=== PATIENT | female | born 1960 | race Two or more races ===

== ENCOUNTER 2018-01-13 07:19 | Day surgery (SDC) | payer BC ==
[2018-01-13] VITALS (9 sets, daily range): BP systolic 136–146; BP diastolic 64–76
[~2018-01-13] VITALS: Ht 160 cm; Wt 53.5 kg
[~2018-01-13 07:19] MED LIST: BLACK COHOSH160 MG PO; FISH OIL 1,2001 EAC2 PO; MULTIVITAMINS1 EAC2 ORAL; PAXIL10 MG ORAL; PROBIOTIC1 EAC2 PO; PROBIOTIC1 EAC5 PO; VITAMIN B12-FO1 EAC1 PO; VITAMIN C500 M1 ORAL
[2018-01-13] MEDS ORDERED: LR 1000ml ONE (07:20)
[2018-01-13] MEDS ORDERED: Propofol 200mg/20ml IV ONE (07:20)
[2018-01-13] MEDS ORDERED: Midazolam 2mg/2ml Inj ONE (07:20)
[2018-01-13] MEDS ORDERED: Glycopyrrolate 0.2mg/ml 1ml Vial ONE (07:20)
[2018-01-13] MEDS ORDERED: fentaNYL 100 mcg/2 mL IV ONE (07:20)
--- NOTE | 2018-01-13 07:51 | Anethesia Preoperative Eval ---
Anesthesia Pre-op PMH/ROS General Date of Evaluation: Jan 13, 2018 Time of Evaluation: 07:47 Anesthesiologist: Quynh ASA Score: ASA 2 Mallampati Score Class I : Soft palate, uvula, fauces, pillars visible Class II: Soft palate, uvula, fauces visible Class III: Soft palate, base of uvula visible Class IV: Only hard plate visible Mallampati Classification: Class II Surgeon: Porter Diagnosis: Abdominal pain Surgical Procedure: EGD Colonioscopy Anesthesia History: none Family History: no anesthesia problems Allergies: Coded Allergies: PINEAPPLE (Verified Allergy, Unknown, 01/13/18) STRAWBERRY (Verified Allergy, Unknown, 01/13/18) Uncoded Allergies: SHELLFISH (Allergy, Severe, 01/13/18) ITCHING Medications: see eMAR Patient NPO?: Yes Past Medical History Cardiovascular: Denies: HTN, CAD, GA, valve dz, arrhythmia, other Pulmonary: Denies: asthma, COPD, JAIRO, other Gastrointestinal/Genitourinary: Reports: GERD; Denies: CRI, ESRD, other Neurologic/Psychiatric: Reports: depression/anxiety; Denies: dementia, CVA, TIA, other Endocrine: Denies: DM, hypothyroidism, steroids, other HEENT: Denies: cataract (L), cataract (R), glaucoma, [place] (L), [place] (R), other Hematology/Immune: Reports: anemia; Denies: DVT, bleeding disorder, other Musculoskeletal/Integumentary: Denies: OA, RA, DJD, DDD, edema, other PMH Narrative: as above PSxH Narrative: Breast Sx Anesthesia Pre-op Phys. Exam Physician Exam Constitutional: NAD Neurologic: CN 2-12 intact Cardiovascular: RRR, no M/R/G Respiratory: CTA Gastrointestinal: S/NT/ND Airway Exam Mallampati Score: Class II MO: full Neck: flexible ROM: limited Teeth: missing Dentures: no upper, no lower Anesthesia Pre-op A/P Labs see chart Studies Pre-op Studies: EKG - SR Risk Assessment & Plan Assessment: ASA 2 Plan: MAC Status Change Before Surgery: No Pre-Antibiotics Drug: none Manny Beauchamp MD Jan 13, 2018 07:51
[2018-01-13] MEDS ORDERED: ZANTAC150 MG ORAL (07:59)
[2018-01-13] MEDS ORDERED: TURMERIC 450-51 EAC1 PO (07:59)
[2018-01-13] MEDS ORDERED: VITAMIN D400 INTLU ORAL (07:59)
[2018-01-13] MEDS ORDERED: AMITZA PO (07:59)
--- NOTE | 2018-01-13 08:18 | Short Stay Surgery H&P ---
History of Present Illness History of Present Illness Chief Complaint See attached H&P HPI Eric Scott is a 57 year old female who was admitted on for Gerd,Blood In Stool Patient History Allergies: Coded Allergies: PINEAPPLE (Verified Allergy, Unknown, 01/13/18) STRAWBERRY (Verified Allergy, Unknown, 01/13/18) Uncoded Allergies: SHELLFISH (Allergy, Severe, 01/13/18) ITCHING Medication History Scheduled Ascorbic Acid* (Vitamin C*), 1,000 MG ORAL DAILY, (Reported) Black Cohosh Root Extract (Black Cohosh), 160 MG PO BID, (Reported) Fish Oil/Dha/Epa (Fish Oil 1,200 Mg Fish Oil), 1 EACH PO DA, (Reported) Lactobacillus Acidophilus (Probiotic), 1 EACH PO DA, (Reported) Multivitamins* (Multivitamins*), 1 TAB ORAL DAILY, (Reported) Paroxetine Hcl* (Paxil*), 10 MG ORAL DAILY, (Reported) Ranitidine Hcl* (Zantac*), 300 MG ORAL BEDTIME, (Reported) Turmeric/Turmeric Root Extract (Turmeric 450-50 mg Capsule), 1 EACH PO DAILY, ( Reported) Vitamin D (Vitamin D3), 2,000 UNITS ORAL DAILY, (Reported) [Amitza], 10 MG PO BID, (Reported) Discontinued Medications Cyanocobalamin/Folic Acid (Vitamin M61-Dgrme Acid Tablet), 1 EACH PO DA, ( Reported) Discontinued Reason: Pt stopped taking med Physical Exam Vital Signs Last Vital Signs Date Time Temp Pulse Resp B/P (MAP) Pulse Ox O2 Delivery O2 Flow Rate FiO2 01/13/18 07:53 97.5 62 18 146/70 99 Room Air Plan Attestation Are the patient's medical conditions optimized for surgery? Michael Laurent MD Jan 13, 2018 08:18
--- NOTE | 2018-01-13 08:18 | Pre-Procedure Note/Attestation ---
Pre-Procedure Note/Attestation Complete Prior to Procedure Planned Procedure: not applicable Procedure Narrative: EGD/Colon Indications for Procedure Pre-Operative Diagnosis: Hematochezia, bloating Attestation I attest that I discussed the nature of the procedure; its benefits; risks and complications; and alternatives (and the risks and benefits of such alternatives ), prior to the procedure, with the patient (or the patient's legal passenger service representative). I attest that, if there was a reasonable possibility of needing a blood transfusion, the patient (or the patient's legal passenger service representative) was given the [facility] standardized written summary, pursuant to the Wilbur Negar Blood Safety Act ([place] Health and Safety Code # 1645, as amended). I attest that I re-evaluated the patient just prior to the surgery and that there has been no change in the patient's H&P, except as documented below: Michael Laurent MD Jan 13, 2018 08:18
[2018-01-13] MEDS ORDERED: LR 1000ml 1,000 ML IVLG SCH (08:33)
[2018-01-13] MEDS ORDERED: DiphenhydrAMINE 50mg/ml Inj IVP PRN (08:45)
[2018-01-13] MEDS ORDERED: fentaNYL 100 mcg/2 mL IV PRN (08:45)
--- NOTE | 2018-01-13 09:28 | Immediate Post-Op Evaluation ---
Immediate Post-Op Evalulation Immediate Post-Op Evalulation Procedure: EGD Colonoscopy Date of Evaluation: Jan 13, 2018 Time of Evaluation: 09:27 IV Fluids: 800 Blood Products: none Estimated Blood Loss: none Urinary Output: none Blood Pressure Systolic: 134 Blood Pressure Diastolic: 78 Pulse Rate: 72 Respiratory Rate: 20 O2 Sat by Pulse Oximetry: 99 Temperature (Fahrenheit): 97.6 Pain Score (1-10): 1 Nausea: No Vomiting: No Complications none Patient Status: reacts, patent, none Hydration Status: adequate Manny Beauchamp MD Jan 13, 2018 09:28
--- NOTE | 2018-01-13 09:42 | Endoscopy Procedure Note ---
Endoscopy Procedure Note General Indication for Procedure: Bloating , Hematochezia Procedures Performed: EGD, colonoscopy Operative Findings/Diagnosis: HH,2-3 cm, bx, redund colon, tic - rare, rhoids, mild, to hepatic only Specimen: yes Pt Tolerated Procedure Well: Yes Estimated Blood Loss: none Anesthesia Anesthesiologist: see separate notes Anesthesia: MAC Medications Medication Given: see anesthesia record Inserted Devices Implant(s) used?: No Quality Quality of Bowel Preparation: Excellent Did scope reach the cecum?: No If no,where did scope reach?: hepatic flexure If none of the above apply,why: redundant colon, frequent looping of colonoscope Was there any complications?: No GI Core Measures 50 yrs or older w/o bx or poly: Not Applicable 10yrs. F/U not recommended: Not Applicable If not recommended, why?: Michael Laurent MD Jan 13, 2018 09:42
--- NOTE | 2018-01-13 09:45 | Brief Operative Note ---
Immediate Post Operative Note Operative Note Chief Complaint: bloating, BRBPR Pre-op Diagnosis: Hematochezia, bloating Procedure: esophagogastroduodenoscopy, biopsi, colonoscopy to hepatic flexure, Post-op Diagnosis: HH x 3 xm , biopsy of antrum and duodenum, redundant colon, mild (L) side diverticulosis, mild hemorrhoid, aborted at hepatic flexure Surgeon: jevon Anesthesiologist: see separte report Anesthesia: MAC Specimen: yes Complications: none Condition: stable Fluids: recorded, per anesthesia Estimated Blood Loss: none Drains: none Packing: None Implant(s) used?: No Michael Laurent MD Jan 13, 2018 09:45
--- NOTE | 2018-01-13 10:25 | 48 Hour Post Anesthesia Eval ---
Post Anesthesia Evaluation Procedure: EGD Colonoscopy Date of Evaluation: Jan 13, 2018 Time of Evaluation: 10:24 Blood Pressure Systolic: 116 0: 78 Pulse Rate: 68 Respiratory Rate: 20 Temperature (Fahrenheit): 97.6 O2 Sat by Pulse Oximetry: 98 Airway: patent Nausea: No Vomiting: No Pain Intensity: 1 Hydration Status: adequate Cardiopulmonary Status: stable Mental Status/LOC: patient returned to baseline Follow-up Care/Observations: n/a Post-Anesthesia Complications: none Follow-up care needed: ready to discharge Manny Beauchamp MD Jan 13, 2018 10:25
--- NOTE | 2018-01-14 03:00 | Operative Note - Dictated ---
DATE OF OPERATION: 01/13/2018 PROCEDURE: Upper gastrointestinal endoscopy with biopsy as well as colonoscopy through the hepatic flexure. SURGEON: Michael Laurent M.D. ANESTHESIA: Please see the separate anesthesiologist notes for details. PRE-ENDOSCOPIC DIAGNOSIS: Bloating gas and hematochezia. POST-ENDOSCOPIC DIAGNOSES: 1. A 2 to 3 cm hiatal hernia. 2. Status post random biopsy of the duodenum and the antrum. 3. Mild left-sided colonic diverticulosis as well as mild internal hemorrhoids. 4. Severe redundant and tortuous colonic contour making it not possible to advance beyond the hepatic flexure. DESCRIPTION OF PROCEDURE: The procedure, its risks, indications, alternatives, and possible complications including, but not limited to, bleeding, infection, perforation, , and anesthesia complications were explained to the patient and informed consent was obtained. The diagnostic upper endoscope was introduced through the oropharynx and advanced to the duodenum without difficulty. The endoscope was removed and then subsequently, the colonoscope was introduced into the rectum and advanced through the process of hepatic flexure. The colonoscopy was difficult due to the patient's very redundant colon and frequent looping of the colonoscope. Despite various maneuvers, the colonoscope could not be advanced beyond the hepatic flexure. The colonoscope was removed and the patient was sent to recovery in good condition. Findings of the examination are as listed above. There is no active bleeding identified. RECOMMENDATIONS: 1. Follow up biopsy results. 2. Check and treat Helicobacter pylori if positive. 3. We will discuss the options with the patient at next visit regarding further investigations that can evaluate the remaining portions of the colon that was not seen on this examination. Thank you for asking me to participate in the care of this patient. Michael Laurent M.D. DR: ROLAND JOB#: [id number] CC: Vinicio Selby M.D. ; FAX#: [phone]
== END 2018-01-13 10:35 | disposition home or self-care (01) ==
LOC: GAS 07:19
DX: K44.9 Diaphragmatic hernia without obstruction or gangrene (principal); K29.50 Unspecified chronic gastritis without bleeding; K92.1 Melena; K57.30 Diverticulosis of large intestine without perforation or abscess without bleeding; K64.8 Other hemorrhoids; Q43.8 Other specified congenital malformations of intestine; F32.9 Major depressive disorder, single episode, unspecified; F41.9 Anxiety disorder, unspecified; D64.9 Anemia, unspecified; Z91.013 Allergy to seafood; Z91.018 Allergy to other foods
CPT/HCPCS: 43239; 45378; J2250; J2704; J3010; 94003; 94150